=== PATIENT | female | born 1975 | race Caucasian/White ===

== ENCOUNTER 2017-07-25 11:53 | Emergency (ER) | payer BC ==
[2017-07-25] MEDS ORDERED: ONDANSETRON HCL IV 4 MG/2 ML VIAL IV ONE (12:10)
[2017-07-25] MEDS ORDERED: 0.9 % SODIUM CHLORIDE 1,000 ML BAG IV ONE (12:10)
[2017-07-25 12:33] LABS: URINE APPEARANCE CLEAR; URINE BILIRUBIN NEGATIVE (NEGATIVE); URINE BLOOD NEGATIVE (NEGATIVE); URINE COLOR YELLOW; URINE GLUCOSE (UA) NEGATIVE (NEGATIVE); URINE KETONE NEGATIVE (NEGATIVE); URINE LEUKOCYTE ESTERASE TRACE (NEGATIVE); URINE NITRITE POSITIVE (NEGATIVE); URINE PROTEIN NEGATIVE (NEGATIVE); URINE UROBILINOGEN 0.2 E.U./dL (0.20 - 1.00)
--- NOTE | 2017-07-25 12:35 | Emergency Department Record ---
History of Present Illness - General Chief complaint: Female Urogenital Problem Stated complaint: KIDNEY PAIN Time Seen by Provider: 07/25/17 12:03 Source: Patient Mode of Arrival: Ambulatory Limitations: No limitations - History of Present Illness Initial comments: The patient is here due to not feeling well for the last 24 hours. She has been very fatigued and has had nausea with frequent diarrhea yesterday but none today. Also there has been L flank aching pain. The patient denies any fever, chills, vomiting, or dysuria. She has had kidney infections similar to this in the past. MD Complaint: Other Onset/Timin -: Days(s) Radiation: L flank Severity scale (1-10): 8 Quality: Other Consistency: Constant Improves with: None Worsens with: None Patient : No Associated Symptoms: Denies other symptoms - Related Data Previous Rx's Medication Instructions Recorded Ciprofloxacin HCl [Cipro] 500 mg PO Q12HR #14 tablet 07/25/17 Naproxen [Naprosyn] 500 mg PO BID #14 tablet. 07/25/17 Allergies Allergy/AdvReac Type Severity Reaction Status Date / Time No Known Allergies Allergy Unverified 05/10/16 19:58 Travel Screening - Travel/Exposure Within Last 30 Days Have you traveled within the last 30 days?: No Review of Systems Constitutional: Reports: Malaise. Denies: Chills, Fever Eyes: Denies: Eye discharge ENT: Denies: Congestion Respiratory: Denies: Cough, Dyspnea Past Medical History - SOCIAL HISTORY Smoking Status: Never smoker Alcohol Use: None Drug Use: None - RESPIRATORY Hx Respiratory Disorders: No - CARDIOVASCULAR Hx Cardio Disorders: No - NEURO Hx Neuro Disorders: Yes Hx Headaches: Yes - GI Hx GI Disorders: No - Hx Genitourinary Disorders: Yes Hx UTI: Yes - ENDOCRINE Hx Endocrine Disorders: Yes Hx Thyroid Disease: Yes (hyper) - MUSCULOSKELETAL Hx Musculoskeletal Disorders: No - PSYCH Hx Psych Problems: No - HEMATOLOGY/ONCOLOGY Hx Hematology/Oncology Disorders: No Family Medical History Any Significant Family History?: No Physical Exam - General General Appearance: Alert, Oriented x3, Cooperative, No acute distress - Head Head exam: Atraumatic, Normocephalic, Normal inspection - Eye Eye exam: Normal appearance, PERRL - Neck Neck exam: Normal inspection, Full ROM. negative: Tenderness - Respiratory Respiratory exam: Normal lung sounds bilaterally. negative: Respiratory distress - Cardiovascular Cardiovascular Exam: Regular rate, Normal rhythm, Normal heart sounds - GI/Abdominal GI/Abdominal exam: Soft, Normal bowel sounds, Tenderness (There is mild LUQ tenderness.). negative: Rebound, Rigid - Extremities Extremities exam: Normal inspection, Full ROM, Normal capillary refill. negative: Tenderness - Back Back exam: Reports: Normal inspection, CVA tenderness (L). Denies: CVA tenderness (R) - Neurological Neurological exam: Alert, Normal gait. negative: Abnormal gait, Motor sensory deficit Course Vital Signs 07/25/17 12:00 Temperature 97.7 F Pulse Rate 77 Respiratory 20 Rate Blood Pressure 138/87 Pulse Ox 99 - Reevaluation(s) Reevaluation #1: The patient is doing better and has no pain or discomfort presently. She denies any nausea or vomiting and on recheck has a normal temp. I did explain to her that it appears she has a mild kidney infection due to the infected urine and mild L CVAT. We will discharge her on Cipro and have her F/U with her PCP later this week. She is to return to the ER for any worsening pain, or any fever, or vomiting. 07/25/17 14:01 Medical Decision Making - Data Complexity MDM Data: Labs Ordered and/or Reviewed, X-Ray Ordered and/or Reviewed - Lab Data Result diagrams: 07/25/17 12:25 07/25/17 12:25 - Radiology Data Radiology results: Report reviewed (CT: Neg for ureter stones or hydro.) Disposition Disposition: Discharge Clinical Impression: Pyelonephritis Disposition: Home, Self-Care Condition: (2) Stable Instructions: Urinary Tract Infection in Women (ED) Additional Instructions: Please drink plenty of fluid and take the Cipro and Naprosyn as directed. Please see your family doctor later this week for recheck and to be sure the urine is improving. Return to the ER for any increased pain, fever, or vomiting. Prescriptions: Ciprofloxacin HCl [Cipro] 500 mg PO Q12HR #14 tablet Naproxen [Naprosyn] 500 mg PO BID #14 tablet.dr Forms: Patient Portal Access Time of Disposition: 14:05 Quality - Quality Measures Quality Measures: N/A - Blood Pressure Screening View Details: Yes Does Patient Have Any of the Following: No Blood Pressure Classification: Normal BP Reading Systolic Measurement: 109 Diastolic Measurement: 73 Screening for High Blood Pressure: < Normal BP, F/U Not Required > [G8703]
[2017-07-25 12:38] LABS: BASO % 0.1 % (0-6); EOS % 0.6 % (0-6); GRAN % 68.4 % (47-80); HEMATOCRIT 42.4 % (35.0-47.0); HEMOGLOBIN 13.8 gm/dl (11.6-16.0); LYMPH % 16.7 % (16-45); MEAN CELL VOLUME 87.4 fl (81-97); MEAN CORPUSCULAR HEMOGLOBIN 28.5 pg (27-33); MEAN CORPUSCULAR HGB CONC 32.5 g/dl (32-36); MEAN PLATELET VOLUME 10.9 fl (7.4-10.4); MONO % 14.2 % (0-9); PLATELET COUNT 242 K/uL (130-400); RED BLOOD COUNT 4.85 M/uL (3.80-5.40); RED CELL DISTRIBUTION WIDTH 12.9 % (11.5-14.5); WHITE BLOOD COUNT W/O DIFF 7.9 K/uL (4.2-12.2)
[2017-07-25 12:41] LABS: URINE WBC 36 - 50 (0-2/hpf)
[2017-07-25 12:42] LABS: HCG,QUALITATIVE URINE NEGATIVE (NEGATIVE); URINE BACTERIA 2+
[2017-07-25] MEDS ORDERED: CEFTRIAXONE SODIUM 1 GM in 0.9 % SODIUM CHLORIDE 100ML 100 ML IVPB ONE (12:45)
[2017-07-25 12:46] LABS: BLOOD UREA NITROGEN 12 mg/dL (6-20); CREATININE 0.8 mg/dL (0.5-0.9); EST GLOMERULAR FILTRATION RATE > 60 mL/min
[2017-07-25 12:47] LABS: TOTAL PROTEIN 7.3 g/dL (6.6-8.7)
[2017-07-25 12:49] LABS: GLUCOSE,RANDOM 93 mg/dL (74-109)
[2017-07-25 12:51] LABS: ALBUMIN 4.3 g/dL (4.0-5.0); ALKALINE PHOSPHATASE 54 U/L (35-104); ALT/SGPT 22 U/L (<33); AST/SGOT 18 U/L (10.0-35.0)
[2017-07-25] MEDS ORDERED: KETOROLAC 30 MG/ML VIAL IVP ONE (12:51)
[2017-07-25 12:52] LABS: BILIRUBIN,DIRECT < 0.2 mg/dL (0-0.3); LIPASE 27 U/L (13-60)
--- NOTE | 2017-07-27 08:02 | CT SCAN REPORT ---
EXAM: EMERGENCY CT OF THE ABDOMEN AND PELVIS WITHOUT CONTRAST HISTORY: LEFT FLANK PAIN FOR A DAY. CHOLECYSTECTOMY AND APPENDECTOMY. TECHNIQUE: Axial CT scan of the abdomen and pelvis was performed without oral or IV contrast. Comparison: CT of the abdomen and pelvis dated 03/13/09. FINDINGS: There is a single small calcification in the lower pole of the left kidney and another in the mid portion of the left kidney consistent with a couple tiny currently nonobstructing intrarenal calculi within the left kidney. None seen on the right. No hydronephrosis or hydroureter seen on either side and as such, it is quite difficult to follow the entire course of both ureters in their nondilated state throughout the retroperitoneum and pelvis. There are no suspicious calcifications in the right side of the pelvis to suggest a ureteral calculus, however, there are a couple calcifications in the left side of the pelvis which are new compared with the prior 03/13/09 CT. It is difficult to determine if these are just phleboliths that have developed in the interval or whether one of these may be a small relatively nonobstructing left ureteral calculus. I suspect these are both non-ureteral in nature, but if there remains a strong clinical suspicion of a ureteral calculus, follow-up CT urography might be useful in an effort to establish a relationship of the opacified ureters to these left sided pelvic calcifications. The gallbladder and appendix are not identified consistent with the surgical history, probably with some surgical clips near the tip of the cecum associated with prior appendectomy. Evaluation of the bowel and viscera is very limited without oral or IV contrast. Given this limitation, no definite hepatic mass identified. The previously noted single low attenuation mass in the spleen measuring about 16 x 10 mm on 03/13/09 is again seen today, again measuring about 16 x 10 mm and presumably a stable small splenic cyst or hemangioma. No definite adrenal, pancreatic, or renal mass identified. The uterus is somewhat prominent in size measuring about 9.2 cm in transverse x 8 cm in AP diameters. This is somewhat more prominent than before. No obvious discreet uterine mass seen, but if there is any clinical concern for the gynecologic viscera, follow-up pelvic ultrasound would be suggested. There is a small amount of free fluid seen in the pelvis with a similar appearance seen previously and this may just be physiologic in nature. Degenerative disk disease at the lumbosacral interspace. IMPRESSION: 1. A COUPLE TINY NONOBSTRUCTING CALCULI LEFT KIDNEY. NONE SEEN ON THE RIGHT. 2. NO HYDRONEPHROSIS OR HYDROURETER ON EITHER SIDE. A COUPLE SMALL LEFT SIDED PELVIC CALCIFICATIONS, NEW SINCE 03/13/09 ALTHOUGH MAY JUST BE PHLEBOLITHS. IF THERE IS A STRONG CLINICAL SUSPICION OF DISTAL LEFT URETERAL CALCULUS, FOLLOW- UP CT UROGRAPHY MAY BE USEFUL. 3. MILDLY ENLARGED UTERUS. SMALL AMOUNT OF NONSPECIFIC FREE FLUID IN THE PELVIS MAY SIMPLY BE PHYSIOLOGIC. 4. POSTOP CHOLECYSTECTOMY AND APPENDECTOMY. 5. STABLE 1.6 CM LOW ATTENUATION MASS IN THE SPLEEN IS LIKELY A SMALL SPLENIC CYST OR HEMANGIOMA. 6. DEGENERATIVE DISK DISEASE LUMBOSACRAL INTERSPACE. JOB NUMBER: [id number] [facility]
== END 2017-07-25 14:30 | disposition home or self-care (01) ==
LOC: ER 11:53
DX: N10 Acute pyelonephritis (principal); R10.12 Left upper quadrant pain; R11.0 Nausea; R19.7 Diarrhea, unspecified; R53.83 Other fatigue
CPT/HCPCS: 99284 ×2; 96374; 96375; 83690; 85025; 80076; 80048; 81001; 81025; 74176; J1885; J2405; J7030

== ENCOUNTER 2017-08-16 22:56 | Emergency (ER) | payer BC ==
[2017-08-16 23:13] LABS: URINE BILIRUBIN NEGATIVE (NEGATIVE); URINE BLOOD NEGATIVE (NEGATIVE); URINE COLOR YELLOW; URINE GLUCOSE (UA) NEGATIVE (NEGATIVE); URINE KETONE NEGATIVE (NEGATIVE); URINE LEUKOCYTE ESTERASE TRACE (NEGATIVE); URINE NITRITE NEGATIVE (NEGATIVE); URINE PROTEIN NEGATIVE (NEGATIVE)
[2017-08-16 23:14] LABS: URINE APPEARANCE SL CLOUDY
[2017-08-16] MEDS ORDERED: ONDANSETRON HCL IV 4 MG/2 ML VIAL IV ONE (23:18)
[2017-08-16] MEDS ORDERED: 0.9 % SODIUM CHLORIDE 1,000 ML BAG IV ONE (23:18)
[2017-08-16] MEDS ORDERED: KETOROLAC 30 MG/ML VIAL IVP ONE (23:18)
[2017-08-16 23:20] LABS: URINE AMORPHOUS SEDIMENT 1+; URINE BACTERIA FEW; URINE EPITHELIAL CELLS 16 - 20 (FEW); URINE RBC 0 - 2 (NONE SEEN); URINE WBC 0 - 2 (0-2/hpf)
[2017-08-16 23:31] LABS: BASO % 0.2 % (0-6); EOS % 2.5 % (0-6); GRAN % 54.8 % (47-80); HEMATOCRIT 40.4 % (35.0-47.0); LYMPH % 28.4 % (16-45); MEAN CELL VOLUME 88.4 fl (81-97); MEAN CORPUSCULAR HEMOGLOBIN 28.4 pg (27-33); MEAN CORPUSCULAR HGB CONC 32.2 g/dl (32-36); MEAN PLATELET VOLUME 10.6 fl (7.4-10.4); MONO % 14.1 % (0-9); PLATELET COUNT 288 K/uL (130-400); RED BLOOD COUNT 4.57 M/uL (3.80-5.40); RED CELL DISTRIBUTION WIDTH 12.7 % (11.5-14.5); WHITE BLOOD COUNT W/O DIFF 9.2 K/uL (4.2-12.2)
[2017-08-16 23:43] LABS: BLOOD UREA NITROGEN 12 mg/dL (6-20); CREATININE 0.9 mg/dL (0.5-0.9); EST GLOMERULAR FILTRATION RATE > 60 mL/min
[2017-08-16 23:46] LABS: GLUCOSE,RANDOM 116 mg/dL (74-109)
--- NOTE | 2017-08-17 00:03 | Emergency Department Record ---
History of Present Illness - General Chief complaint: Flank Pain Stated complaint: FLANK PAIN Time Seen by Provider: 08/16/17 23:08 Source: Patient Mode of Arrival: Ambulatory Limitations: No limitations - History of Present Illness Initial comments: pt had a sudden onset of l flank pain that is severe. she had this 2 wks ago and was diagnosed w pyelonepritis Complaint: Other Onset/Timin -: Hour(s) Severity scale (1-10): 9 Quality: Stabbing Consistency: Constant Improves with: None Worsens with: Movement Patient : No Associated Symptoms: Nausea/vomiting - Related Data Previous Rx's Medication Instructions Recorded Hydrocodone/Acetaminophen [[place] 1 each PO Q4HR PRN #14 tablet 08/17/17 5-325 Tablet] Allergies Allergy/AdvReac Type Severity Reaction Status Date / Time No Known Allergies Allergy . Verified 08/16/17 22:58 Travel Screening - Travel/Exposure Within Last 30 Days Have you traveled within the last 30 days?: No - Travel Symptoms Symptom Screening: None Review of Systems Reviewed: No additional complaints except as noted below Constitutional: Reports: As per HPI. Denies: Chills, Fever, Malaise, Night sweats, Weakness, Weight change Eyes: Reports: As per HPI. Denies: Eye discharge, Eye pain, Photophobia, Vision change ENT: Reports: As per HPI. Denies: Congestion, Dental pain, Ear pain, Epistaxis , Hearing loss, Throat pain Respiratory: Reports: As per HPI. Denies: Cough, Dyspnea, Hemoptysis, Stridor, Wheezes Cardiovascular: Reports: As per HPI. Denies: Arrhythmia, Chest pain, Dyspnea on exertion, Edema, Murmurs, Orthopnea, Palpitations, Paroxysmal nocturnal dyspnea, Rheumatic Fever, Syncope Endocrine: Reports: As per HPI. Denies: Fatigue, Heat or cold intolerance, Polydipsia, Polyuria Gastrointestinal: Reports: As per HPI. Denies: Abdominal pain, Constipation, Diarrhea, Hematemesis, Hematochezia, Melena, Nausea, Vomiting Genitourinary: Reports: As per HPI. Denies: Abnormal menses, Discharge, Dyspareunia, Dysuria, Frequency, Hematuria, Incontinence, Retention, Urgency Musculoskeletal: Reports: As per HPI. Denies: Arthralgia, Back pain, Gout, Joint swelling, Myalgia, Neck pain Skin: Reports: As per HPI. Denies: Bruising, Change in color, Change in hair/ nails, Lesions, Pruritus, Rash Neurological: Reports: As per HPI. Denies: Abnormal gait, Confusion, Headache, Numbness, Paresthesias, Seizure, Tingling, Tremors, Vertigo, Weakness Psychiatric: Reports: As per HPI. Denies: Anxiety, Auditory hallucinations, Depression, Homicidal thoughts, Suicidal thoughts, Visual hallucinations Hematological/Lymphatic: Reports: As per HPI. Denies: Anemia, Blood Clots, Easy bleeding, Easy bruising, Swollen glands Past Medical History - SOCIAL HISTORY Smoking Status: Never smoker - RESPIRATORY Hx Respiratory Disorders: No - CARDIOVASCULAR Hx Cardio Disorders: No - NEURO Hx Neuro Disorders: Yes Hx Headaches: Yes - GI Hx GI Disorders: No - Hx Genitourinary Disorders: Yes Hx UTI: Yes - ENDOCRINE Hx Endocrine Disorders: Yes Hx Thyroid Disease: Yes (hyper) - MUSCULOSKELETAL Hx Musculoskeletal Disorders: No - PSYCH Hx Psych Problems: No - HEMATOLOGY/ONCOLOGY Hx Hematology/Oncology Disorders: No Family Medical History Any Significant Family History?: Yes Hx Diabetes: Grandparents Hx HTN: Father Physical Exam - General General Appearance: Alert, Oriented x3, Cooperative, Mild distress - Head Head exam: Normal inspection - Eye Eye exam: Normal appearance, PERRL, EOMI Pupils: Normal accommodation - ENT ENT exam: Normal exam, Mucous membranes moist, Normal external ear exam, Normal orophraynx Ear exam: Normal external inspection. negative: External canal tenderness Nasal Exam: Normal inspection. negative: Discharge, Sinus tenderness Mouth exam: Normal external inspection, Tongue normal Teeth exam: Normal inspection. negative: Dental caries Throat exam: Normal inspection. negative: Tonsillar erythema, Tonsillar exudate - Neck Neck exam: Normal inspection, Full ROM. negative: Tenderness - Respiratory Respiratory exam: Normal lung sounds bilaterally. negative: Respiratory distress - Cardiovascular Cardiovascular Exam: Regular rate, Normal rhythm, Normal heart sounds - GI/Abdominal GI/Abdominal exam: Soft, Normal bowel sounds. negative: Tenderness - Rectal Rectal exam: Deferred - exam: Deferred - Extremities Extremities exam: Normal inspection, Full ROM, Normal capillary refill. negative: Tenderness - Back Back exam: Reports: Normal inspection, CVA tenderness (L), Full ROM. Denies: Muscle spasm, Rash noted, Tenderness - Neurological Neurological exam: Alert, CN II-XII intact, Normal gait, Oriented X3 - Psychiatric Psychiatric exam: Normal affect, Normal mood - Skin Skin exam: Dry, Intact, Normal color, Warm Course Vital Signs 08/16/17 22:59 Temperature 98.7 F Pulse Rate [ 68 Pulse Ox Probe] Respiratory 20 Rate Blood Pressure 158/104 [Left Arm] Pulse Ox 100 - Reevaluation(s) Reevaluation #1: 08/17/17 00:28 pt feels much better. pain is a 2/10. ct shows 4mm obstructing stone and possible 5mm stone Medical Decision Making - Lab Data Result diagrams: 08/16/17 23:25 08/16/17 23:25 Lab Results 08/16/17 08/16/17 08/16/17 Range/Units 23:08 23:08 23:25 WBC 9.2 (4.2-12.2) K/uL RBC 4.57 (3.80-5.40) M/uL Hgb 13.0 (11.6-16.0) gm/dl Hct 40.4 (35.0-47.0) % MCV 88.4 (81-97) fl MCH 28.4 (27-33) pg MCHC 32.2 (32-36) g/dl RDW 12.7 (11.5-14.5) % Plt Count 288 (130-400) K/uL MPV 10.6 H (7.4-10.4) fl Gran % 54.8 (47-80) % Lymphocytes % 28.4 (16-45) % Monocytes % 14.1 H (0-9) % Eosinophils % 2.5 (0-6) % Basophils % 0.2 (0-6) % Sodium (136-145) mmol/L Potassium (3.4-4.5) mmol/L Chloride (98-107) mmol/L Carbon Dioxide (22-29) mmol/L Anion Gap (7-16) BUN (6-20) mg/dL Creatinine (0.5-0.9) mg/dL Estimated GFR mL/min Random Glucose (74-109) mg/dL Calcium (8.6-10.0) mg/dL Urine Color Yellow Urine Appearance Sl cloudy Urine pH 7.0 (5.0-8.0) Ur Specific [place] 1.020 (1.002-1.030) Urine Protein Negative (NEGATIVE) Urine Glucose (UA) Negative (NEGATIVE) Urine Ketones Negative (NEGATIVE) Urine Blood Negative (NEGATIVE) Urine Nitrite Negative (NEGATIVE) Urine Bilirubin Negative (NEGATIVE) Urine Urobilinogen 1.0 (0.20 - 1.00) E.U./dL Ur Leukocyte Esterase Trace H (NEGATIVE) Urine RBC 0 - 2 (NONE SEEN) Urine WBC 0 - 2 (0-2/hpf) Ur Epithelial Cells 16 - 20 (FEW) Amorphous Sediment 1+ Urine Bacteria Few Urine HCG, Qual Negative (NEGATIVE) 08/16/17 Range/Units 23:25 WBC (4.2-12.2) K/uL RBC (3.80-5.40) M/uL Hgb (11.6-16.0) gm/dl Hct (35.0-47.0) % MCV (81-97) fl MCH (27-33) pg MCHC (32-36) g/dl RDW (11.5-14.5) % Plt Count (130-400) K/uL MPV (7.4-10.4) fl Gran % (47-80) % Lymphocytes % (16-45) % Monocytes % (0-9) % Eosinophils % (0-6) % Basophils % (0-6) % Sodium 146 H (136-145) mmol/L Potassium 3.9 (3.4-4.5) mmol/L Chloride 99 (98-107) mmol/L Carbon Dioxide 29.0 (22-29) mmol/L Anion Gap 18.0 H (7-16) BUN 12 (6-20) mg/dL Creatinine 0.9 (0.5-0.9) mg/dL Estimated GFR > 60 mL/min Random Glucose 116 H (74-109) mg/dL Calcium 9.7 (8.6-10.0) mg/dL Urine Color Urine Appearance Urine pH (5.0-8.0) Ur Specific [place] (1.002-1.030) Urine Protein (NEGATIVE) Urine Glucose (UA) (NEGATIVE) Urine Ketones (NEGATIVE) Urine Blood (NEGATIVE) Urine Nitrite (NEGATIVE) Urine Bilirubin (NEGATIVE) Urine Urobilinogen (0.20 - 1.00) E.U./dL Ur Leukocyte Esterase (NEGATIVE) Urine RBC (NONE SEEN) Urine WBC (0-2/hpf) Ur Epithelial Cells (FEW) Amorphous Sediment Urine Bacteria Urine HCG, Qual (NEGATIVE) Disposition Disposition: Discharge Clinical Impression: Renal lithiasis Hydronephrosis Qualifiers: Hydronephrosis type: with ureteral calculous obstruction Qualified Code(s): N13.2 - Hydronephrosis with renal and ureteral calculous obstruction Disposition: Home, Self-Care Condition: (1) Good Instructions: Kidney Stones (ED), How to Strain Your Urine (ED) Additional Instructions: follow up with dr lehman. return sooner if worse. push fluids Prescriptions: Hydrocodone/Acetaminophen [[place] 5-325 Tablet] 1 each PO Q4HR PRN #14 tablet PRN Reason: Pain - Mod To Severe (5-10) Referrals: ANTONIETTA OG M.D. [MEDICAL DOCTOR] - [facility] [Provider Group] Forms: Patient Portal Access Quality - Quality Measures Quality Measures: N/A - Blood Pressure Screening Does Patient Have Any of the Following: No Blood Pressure Classification: Normal BP Reading Systolic Measurement: 108 Diastolic Measurement: 68 Screening for High Blood Pressure: < Normal BP, F/U Not Required > [G8783]
[2017-08-17] MEDS ORDERED: HYDROCODONE/APAP 5/325MG TABLET PO ONE (00:29)
--- NOTE | 2017-08-18 22:28 | CT SCAN REPORT ---
EXAM: CT SCAN ABDOMEN/PELVIS WO CONTRAST HISTORY: LEFT FLANK PAIN. TECHNIQUE: Sequential axial images were obtained from the diaphragms through the ischiorectal fossa without intravenous or oral contrast administration. FINDINGS: There is a 4 mm obstructing calculus in the distal left ureter proximal to the ureterovesicular junction. This produces moderate left hydronephrosis/hydroureter. There are additional calculi in the left kidney. The non-opacified liver appears normal. The gallbladder is surgically absent. The pancreas and spleen appear normal. The adrenal glands appear normal. Small bowel appears normal. The urinary bladder appears normal. The uterus and adnexal structures are grossly normal. The osseous structures are normal. IMPRESSION: A 4 MM OBSTRUCTING CALCULUS IN THE DISTAL LEFT URETER AT THE URETEROVESICULAR JUNCTION. THIS PRODUCES MODERATE LEFT HYDRONEPHROSIS/HYDROURETER. NONOBSTRUCTING CALCULI IN THE LEFT KIDNEY. JOB NUMBER: [id number] [facility]
== END 2017-08-17 00:53 | disposition home or self-care (01) ==
LOC: ER 22:56
DX: N13.2 Hydronephrosis with renal and ureteral calculous obstruction (principal); R11.2 Nausea with vomiting, unspecified
CPT/HCPCS: 74176; 80048; 81001; 81025; 85025; 96361; 96374; 96375; 99284; J1885; J2405; J7030